=== PATIENT | male | born 1955 | race Caucasian/White ===

== ENCOUNTER → 2017-06-19 16:05 | Outpatient (CLI) | payer SELFPAY ==
[2016-09-03 12:18] VITALS: BP 129/84
--- NOTE | 2017-06-19 16:29 | RAD_ITS ---
STUDY: X-RAY CHEST REASON FOR EXAM: Male, 61 years old. Cough, bronchitis TECHNIQUE: Frontal and lateral views COMPARISON: None. FINDINGS: The lungs are clear and expanded. There is no demonstrated pleural abnormality. Normal size heart. Normal mediastinum and jessy. Normal visualized pulmonary arteries. Normal visualized aortic arch and descending thoracic aorta. Mild degenerative changes of the thoracic spine. Normal visualized ribs, clavicles, and shoulders. There is no demonstrated abnormality of the visualized soft tissue structures of the upper abdomen. RAD/Chest PA and Lateral IMPRESSION: Normal x-ray examination of the chest. Electronically Signed: Raymond Wallace DO at 22:15 EST Tel [phone], Service support ,
[2017-06-19 17:29] LABS: Absolute Lymphocyte Count 0.66 X10^3/ul (0.83-4.51); Absolute Neutrophil Count 1.7 X10^3/uL (2.0-7.7); Basophil# 0.01 X10^3/uL; Basophil% 0.3 % (0-1); Eosinophil# 0.12 X10^3/uL; Eosinophils% 3.7 % (0-5); Hematocrit 43.7 % (40-54); Hemoglobin 15.1 g/dl (13.0-16.5); Lymphocyte # 0.66 X10^3/ul (4.0); Lymphocyte % 20.6 % (19-41); Mean Corp Hgb Conc 34.6 g/gl (32-36); Mean Corpuscular Hgb 32.3 pg (27.0-32.0); Mean Corpuscular Volume 93.6 fL (80-94); Mean Platelet Vol. 10.1 fl (6.2-12.0); Monocyte# 0.68 X10^3/uL; Monocyte% 21.2 % (0-10); Neutrophil # 1.74 X10^3/uL (2.7-7.7); Neutrophil % 54.2 % (47-70); Platelet Count 147 K/mm3 (150-450); RBC Distribution Width SD 44.4 fl (35.1-43.9); Red Blood Count 4.67 M/mm3 (4.6-6.2); White Blood Count 3.2 K/mm3 (4.4-11.0)
[2017-06-19 17:31] LABS: POSITIVE COUNT NO; POSITIVE DIFFERENTIAL NO; POSITIVE MORPHOLOGY NO
== END ==
PROVIDERS: Family Provider Nurse Practitioner Family; PCP Nurse Practitioner Family; Visit Provider Nurse Practitioner Family
DX: R05 Cough (principal); J42 Unspecified chronic bronchitis
CPT/HCPCS: 36415; 71046; 85025

== ENCOUNTER → 2018-12-04 | Outpatient (CLI) | payer SELFPAY ==
[2018-12-04 17:33] LABS: PSA,Total - Annual Screen 0.86 ng/mL (0.00-4.00)
== END | disposition home or self-care (01) ==
PROVIDERS: Family Provider Nurse Practitioner Family; PCP Nurse Practitioner Family; Referring Provider Nurse Practitioner Family; Visit Provider Nurse Practitioner Family
DX: Z12.5 Encounter for screening for malignant neoplasm of prostate (principal)
CPT/HCPCS: 36415; 84153; G0103

== ENCOUNTER 2020-04-05 09:00 | Outpatient (RCR) | payer OTHER, SELFPAY ==
[2019-06-25 14:29] VITALS: BMI 31.6
--- NOTE | 2020-03-22 14:52 | HP.PTEVAL ---
Patient's Visit Information CLARIBEL CEJA is a 64 year old M referred to Physical Therapy by KISHORE VENTURA with a diagnosis of subdural hematoma, R shoulder pain. Date of Evaluation: 03/22/20 Physical Therapist: Hector Meade, PT, ATC - Visit Plan Frequency: 2x /Week Duration: 1 Week Plan: Issue and instruct a HEP for R shoulder AROM, strengthening (rot cuff), scap stab, UBE over next 2 visits. 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 Pt reports he landed on his R side which resulted in multiple Fx'd ribs, fractured scapula, pnuemothorax, and subdural hematoma. Pt was in the hospital for about a week, and has been home for the past 5 days. Pt reports he is still in a lot of pain today. Pt notes he feels his rib pain only when he coughs. Pt is L hand dominant. Pt reports difficulty with getting dressed at this time secondary to rib and shoulder pain. Pt reports his biggest concern is that he wants to RTW without limitatiions . Pt notes he has sleep difficulty secondary to pain, being able to sleep for about 2 hours at a time. No tingling or numbness in R UE. - Pain R ribs and shoulder Pain Intensity (Out of 10): 2 Pain Intensity Range: 9 - Objective Neuro: B UE sensation is WNL to light touch. B bicepital reflex= 2/3. Palpation: Pt has a 2nd degree step off deformity of R AC joint. Pain throughout R shoulder. No other obvious deformity. ROM: L shoulder flex= 150, abd= 155, ER= 55, IR WNL; R shoulder flex= 75, abd= 70, ER= 55. MMT: R Shoulder is grossly 2-/5 and painful. L shoulder is 5/5 throughout - Goals Goal 1:: I with HEP Goal Time Frame: 4-6 Weeks - Rehabilitation Potential Physical Therapy Diagnosis: Pt has R shoulder pain, weakness, and limited ROM secondary to trauma suffered from a fall Rehabilitation Potential: Good - Anticipated Interventions Patient/Client Instruction: Educate patient on: Condition, Plan of Care For the Purpose of:: To improve self management Therapeutic Exercise to Include: Strength training, Endurance training, Flexibilty training, Active ROM, Scapular Strength/Stabilization For the Purpose of:: To decrease pain, To increase ROM, To improve muscle performance and motor function Cryotherapy (ice pack, ice massage): Yes For the Purpose of:: To decrease pain Thank you for the opportunity to evaluate your patient. For Medicare and Medicare HMO plans, please review the plan of care and approve it. It will need to be FAXED BACK to us at [phone] for Medicare purposes. For Medicare only, by signing this I certify the plan of care. Please let me know if there are questions or concerns regarding this plan of care. Physician Signature: Date:
--- NOTE | 2020-04-04 13:53 | HP.OTEVAL_ITS ---
Patient's Visit Information CLARIBEL CEJA is a 64 year old M, referred to Occupational Therapy by KISHORE VENTURA, with a diagnosis of subarachnoid hemorrhage, subdural hematoma. Date of Evaluation: 04/04/20 Occupational Therapist: Shantelle Hunter, OTR/Tim, CHT - Subjective This 64 year old male was seen for OT eval with dx of subarachnoid hemorrhage, dub dural hematoma. 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 pt went by squad and life flight to [facility]. Pt will see Physical therapy for his right shoulder. pt states he is having difficulty with word finding or his walking feels off or balance. pt is left handed. 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 pt states he is having difficult stay focused. pt states he becomes emotional about things around him- states he can not read a novel yet. - Pain right UE 3 Pain Intensity Range: 3, 8 - ROM Shoulder: right limited to 110* left WNL Elbow: Right /left WNL Forearm: Right /left WNL Wrist: Right /left WNL - Strength Passport Application Examiner: right 90# left 85# Lateral Pinch: right 30# left 32# Tripod Pinch: right 28# left 24# Tip-to-Tip Pinch: right 20# left 20# - Sensation Sensation Comments: denies - Quick DASH-Disab of Arm,Shoulder& Hand Quick DASH Score: 58.3325 - Rehabilitation General Assessment: Pt demo with right painful shoulder and limited ROM- this is being treated by Physical therapy- As to not duplicate services pt will not cont. with OT at this time. pt demo with some word finding issues and staying foucused while at work. pt would benefit from speech therapy to eval pts cognitive status. - Visit Plan General Plan: Pt is established with Physical therapy and to not overlap s ervices will defer services to PT- pt would benefit from Speech Therapy for cognitive eval. TEXT: Thank you for the opportunity to evaluate your patient. For Medicare and Medicare HMO plans, please review the plan of care and approve it. It will need to be FAXED BACK to us at [phone] for Medicare purposes. Please let me know if there are questions or concerns regarding this plan of care. Physician Signature: Date:
--- NOTE | 2020-06-20 14:56 | HP.PT.NRP ---
CLARIBEL CEJA was seen in my office for initial evaluation on 03/22/20. The following Plan of Care was established for this patient: Initial Frequency: 2x /Week Initial Duration: 1 Week Patient/Client Instruction: Educate patient on: Condition, Plan of Care For the Purpose of:: To improve self management Therapeutic Exercise to Include: Strength training, Endurance training, Flexibilty training, Active ROM, Scapular Strength/Stabilization For the Purpose of:: To decrease pain, To increase ROM, To improve muscle performance and motor function Cryotherapy (ice pack, ice massage): Yes For the Purpose of:: To decrease pain This patient was last seen in our office . Pertinent comments regarding their Physical therapy will appear below: Pt was treated for 2 PT visits for R shoulder pain through the date of 04/05/20. Pt has not returned through todays date and is discontinued at this time. At this point I will be discontinuing this patient from physical therapy. I would be happy to see this patient again in the future if found appropriate by the physician. Thank you! Hector Meade, PT, ATC
== END 2020-04-05 19:00 | disposition home or self-care (01) ==
LOC: PT 09:00
PROVIDERS: PCP Nurse Practitioner Family
DX: S22.41XD Multiple fractures of ribs, right side, subsequent encounter for fracture with routine healing (principal); S27.0XXD Traumatic pneumothorax, subsequent encounter; I60.9 Nontraumatic subarachnoid hemorrhage, unspecified; W19.XXXD Unspecified fall, subsequent encounter
CPT/HCPCS: 97110; 97161; 97166

== ENCOUNTER 2022-06-30 09:16 | Emergency (ER) | payer OTHER, SELFPAY ==
[2022-06-30 09:17] VITALS: BP 140/73; PULSE 66; RESP 16; TEMP 36.1; O2SAT 96; BMI 32.1
--- NOTE | 2022-06-30 09:36 | RAD_ITS ---
EXAM: XR RIGHT HAND COMPLETE, 3 OR MORE VIEWS CLINICAL INDICATION: Injured right middle finger last night TECHNIQUE: Frontal, lateral and oblique views of the right hand. This report was created using [employer] report generation technology. COMPARISON: None. FINDINGS: BONES/JOINTS: Acute longitudinal fracture with mild comminution of the distal two thirds of the third distal phalanx. Preservation of the joint space. No sclerotic or destructive changes observed. SOFT TISSUES: Unremarkable. No soft tissue swelling or gas. No radiopaque foreign body. RAD/Finger(s) Min 2 Views IMPRESSION: Acute longitudinal fracture with mild comminution in the distal two thirds of the right third distal phalanx. Electronically Signed: Nasim Garcia MD at 9:52 EST ,
--- NOTE | 2022-06-30 09:37 | EDS_ITS ---
HPI History of Present Illness Chief Complaint: Upper Extremity Injury Detail of Chief Complaint: Injury to right middle finger Informant: patient Narrative Narrative: Patient presents with an injury to his right middle finger that occurred last evening approximately 11:30 PM. Patient states that he was putting firewood in his furnace when 2 pieces of wood smashed his finger. Patient is left-hand dominant. Patient thinks his last tetanus shot was less than 5 years ago. Patient states that he has allergy to lidocaine when he had it injected in his armpit years ago it caused him chest pain and that had epinephrine in it. Patient denied lip or tongue swelling with that. Patient has had anesthetic in the past as well as dental injections without any difficulty. [facility] Medical History (Updated 06/30/22 @ 10:[address] Dana Wolfe DO) Hemorrhoid Osteoarthritis Home Medications multivitamin 1 tab PO DAILY 09/02/16 [History Last Taken 09/02/16 12:00] ascorbic acid (vitamin C) 500 mg capsule mg PO 06/25/19 [History Last Taken Unknown] echinacea 500 mg capsule 500 mg PO BID 06/25/19 [History Last Taken Unknown] niacin 100 mg tablet 100 mg PO DAILY 06/25/19 [History Last Taken Unknown] saw palm 160 mg-vit E 100 unit-selen 100 [id number]-tqqi-iohhmp-pygeum tablet (Prostate Health) tab PO 06/25/19 [History Last Taken Unknown] cephalexin 500 mg capsule 500 mg PO Q6 #40 CAPSULES 06/30/22 [Rx Last Taken Unknown] hydrocodone-acetaminophen 5-325mg 5mg-325mg 1 tab PO Q4H PRN PRN Pain 2 days #10 TABLETS 06/30/22 [Rx Last Taken Unknown] Allergy/AdvReac Type Severity Reaction Status Date / Time peanut Allergy Severe sob, Verified 06/30/22 09:19 rectal bleeding epinephrine AdvReac Severe chest pain Verified 06/30/22 09:19 [From Xylocaine with Epinephrine] lidocaine AdvReac Severe chest pain Verified 06/30/22 09:19 [From Xylocaine with Epinephrine] Family History Father Diabetes Hypertension Cancer lung Sister Diabetes Mother Heart disease COPD (chronic obstructive pulmonary disease) Surgical History History of appendectomy (~2018) History of colonoscopy (~2015) Social History (Updated 07/01/19 @ 08:[address] Mike Pruett MD) Smoking Status: Never smoker ROS ROS ED Review of Systems ROS Unobtainable: other Constitutional Constitutional ED: Reports lethargy; Denies chills, fever(s), sweats or weight loss Eyes Eyes: Denies blurry vision, change in vision or diplopia ENT ENT ED: Denies rhinorrhea or sore throat Cardiovascular Cardiovascular: Denies chest pain, orthopnea or racing heartbeat Respiratory/Chest Respiratory/Chest: Denies cough, dyspnea, dyspnea on exertion, orthopnea or sputum Gastrointestinal Gastrointestinal: Denies abdominal pain, diarrhea, nausea or vomiting Genitourinary Genitourinary ED: Denies dysuria, hematuria or urinary frequency Musculoskeletal Musculoskeletal: Reports other Details: Injury to right middle finger ; Denies arthralgias, back pain, myalgias or neck pain Integumentary Denies abscess, Abrasions or rash Neurologic Neurologic: Denies headache(s) or weakness Psychiatric Psychiatric: Denies anxiety, depression or suicidal thoughts Endocrine Endocrinology: Denies polydipsia, polyphagia or polyuria Hematologic/Lymphatic Hematologic/Lymphatic: Denies easy bleeding, easy bruising or lymphadenopathy Allergic/Immunologic Allergic/Immunologic ED: Denies mouth swelling, tongue swelling or urticaria EXAM Physical Exam Const Vital Signs: 06/30/22 09:17 Temperature 97 F L Temperature Source Temporal Pulse Rate 66 Respiratory Rate 16 Blood Pressure 140/73 H Blood Pressure Mean 95 Pulse Ox 96 Oxygen Delivery Method Room Air Positive well nourished and well developed General Appearance ED: well developed and NAD HEENT Reports TM's clear and moist mucous membranes normocephalic and atraumatic; Negative for trauma or tenderness Tympanic Membrane ED: Yes TM's clear Eyes PERRL and EOMs intact bilaterally General Eye ED: Negative for pale conjunctiva or scleral icterus Neck no lymphadenopathy, supple and no JVD General: Negative for tenderness Chest Wall inspection of chest normal and palpation of chest normal Chest: Negative for tenderness Resp normal respiratory effort and clear to auscultation bilaterally Effort and Inspection: Negative for respiratory distress or pain with movement Auscultation: Negative for rhonchi, wheezes or diminished lung sounds Cardio regular rate, regular rhythm, S1 normal heart sound, S2 normal heart sound and no murmurs Peripheral Pulses: pulses 2+ throughout GI normal to inspection, nondistended, normoactive bowel sounds, soft to palpation, non-tender, non-distended and no masses Back/Spine no CVA tenderness and no thoracic nor lumbar tenderness Extremity Extremity Narrative: Right hand-patient has arthritic changes to the DIP and PIP joints of the fingers. Evaluation of the right middle finger does reveal some tenderness palpation over the distal phalanx. Over the volar aspect of the distal phalanx there is a flap-like laceration measuring approximately 2.5 cm. Patient has good range of motion flexion extension of all digits and the involved digit at the DIP and PIP joint. General Extremety ED: Negative for edema General Extremity: Negative for edema Neuro oriented x3, CN's II-XII intact bilaterally, no sensory deficits noted and gait normal Sensorium / Orientation: awake, alert, oriented to person, oriented to place and oriented to time Motor Exam: strength 5/5 throughout and strength abnormal Psych mental status grossly normal Skin no rashes or lesions noted and no wounds MDM MDM MDM Narrative Medical decision making narrative: Patient had his suture repair given that he is within the 12-hour window. I performed a digital block. Patient tolerated procedure well. Wound was irrigated with copious saline. Wound cleansed with Shur-Clens. Using 5-0 nylon total of 6 interrupted sutures placed with good wound edge approximation. Patient Toller procedure well. Patient will be started on Keflex. Patient will be given a prescription for Braggadocio for pain. Patient will be referred to orthopedics for follow-up. Patient have sutures removed in 10 days. Patient advised to return if increasing pain, redness, swelling, purulent drainage, or condition should worsen anyway. Radiography Diagnostic Testing: Three-view x-rays of the right middle finger obtained interpreted by myself as fracture of the distal phalanx that is minimally displaced. Radiology was in agreement. Procedures Lacerations Right middle finger laceration: Length: 0.98 in Depth: Sub Q Shape: Flap Prep: Sterile Conditions Laceration repair: Irrigated, Lidocaine, Nerve block, Skin sutures and Wound explored Irrigated (ml): 100 Number of Sutures/[place]: 6 Suture Information: Ethilon, Simple and 5-0 Discharge Plan Triage Chief Complaint: Upper Extremity Injury ED Provider: Dana Wolfe Dx/Rx/DC Orders Clinical Impression: Open fracture of phalanx of right middle finger, Finger laceration Instructions: ED Fracture, Finger, Open Prescriptions: New hydrocodone-acetaminophen [hydrocodone-acetaminophen] 5-325 mg tablet 1 tab PO Q4H PRN PRN (Reason: Pain) 2 Days Qty: 10 0RF cephalexin [cephalexin] 500 mg capsule 500 mg PO Q6 Qty: 40 0RF No Action niacin 100 mg tablet 100 mg PO DAILY echinacea 500 mg capsule 500 mg PO BID Rx Instructions: administer with meals ascorbic acid (vitamin C) 500 mg capsule PO Prostate Health 160-100-100 mg-unit-mcg tablet PO multivitamin 1 EACH tablet 1 tab PO DAILY Primary Care Provider: West Crockett NP Referrals: Ludwin Freeman MD [Med Staff - Active Staff] - 10 Day for suture removal West Crockett NP, SLURRY CONTROL OPERATOR HELPER-C [Primary Care Provider] - Disposition Disposition: Home, Self Care Discharge Date/Time: 06/30/22 11:13
[2022-06-30] MEDS: Lidocaine 1% (20 ml mdv) 20 ML Vial 8 ML INFILT (09:56)
[2022-06-30] MEDS: Cephalexin 250 MG Capsule 500 MG PO (11:10)
== END 2022-06-30 11:13 | disposition home or self-care (01) ==
PROVIDERS: Emergency Provider Emergency Medicine; PCP Nurse Practitioner Family; Visit Provider Emergency Medicine
DX: S62.602B Fracture of unspecified phalanx of right middle finger, initial encounter for open fracture (principal); S61.212A Laceration without foreign body of right middle finger without damage to nail, initial encounter; X58.XXXA Exposure to other specified factors, initial encounter; Z79.899 Other long term (current) drug therapy; M19.90 Unspecified osteoarthritis, unspecified site; R53.83 Other fatigue
CPT/HCPCS: 12001; 73140; 99284

== ENCOUNTER → 2023-03-25 | Outpatient (CLI) | payer MEDICARE, SELFPAY ==
--- NOTE | 2023-03-25 09:57 | ECHOCS_ITS ---
Reason For Study: PRIMARY CENTRAL SLEEP APNEA Procedure This was a 2D Doppler, Color Flow transthoracic echocardiogram. The study was technically difficult. Contrast injection was performed. Exam performed in department. Left Ventricle Normal LV size. The estimated ejection fraction is 65 %. No evidence for diastolic dysfunction. No regional wall motion abnormalities noted. Right Ventricle Normal RV size. Normal systolic function. Atria The left and right atria are normal. No doppler evidence for ASD. Mitral Valve There is no mitral valve stenosis. No mitral valve insufficiency. Tricuspid Valve There is no tricuspid stenosis. Trivial tricuspid valve insufficiency. Pulmonary artery systolic pressure is 30 mmHg. Aortic Valve Trisinus/trileaflet aortic valve. There is no aortic stenosis. No aortic valve insufficiency. Pulmonic Valve There is no pulmonic valvular stenosis. No pulmonic valve insufficiency. Great Vessels Normal aortic root. Pericardium/Pleural No pericardial effusion. Medication 22 gauge I.V. with prn adaptor inserted into right arm. Diluted definity 3ml given slow IV push to enhance endocardial definition. MMode/2D Measurements & Calculations LVIDd: 4.8 cm IVSd: 1.1 cm Ao root diam: 3.0 cm LVIDs: 3.2 cm LVPWd: 1.2 cm FS: 32.9 % LAV(MOD-bp): 41.5 ml LVAd ap4: 32.8 cm2 SV(MOD-sp4): 55.9 ml LAV(MOD-bp) Indexed: 18.6 ml/m2 LVLd ap4: 8.7 cm LAV(MOD-sp2): 30.2 ml EDV(MOD-sp4): 102.6 ml LAV(MOD-sp4): 50.1 ml EDV(sp4-el): 105.7 ml LVAs ap4: 19.6 cm2 LVLs ap4: 6.9 cm ESV(MOD-sp4): 46.7 ml ESV(sp4-el): 46.9 ml EF(MOD-sp4): 54.5 % EF(sp4-el): 55.6 % SV(sp4-el): 58.8 ml LA A4 area: 18.8 cm2 LA dimension(2D): 4.0 cm RA A4 area: 22.2 cm2 TAPSE: 2.1 cm Time Measurements MV dec time: 0.17 sec Doppler Measurements & Calculations MV E max kai: 69.7 cm/sec Lat Peak E' Kai: 11.6 cm/sec Med Peak E' Kai: 9.1 cm/sec MV A max kai: 61.0 cm/sec E/E' lat: 6.0 E/E' med: 7.7 MV E/A: 1.1 MV V2 max: 101.9 cm/sec MV dec slope: 457.4 cm/sec2 Ao V2 max: 125.8 cm/sec MV max P.2 mmHg Ao max P.3 mmHg MV V2 mean: 54.8 cm/sec Ao V2 mean: 82.9 cm/sec MV mean P.5 mmHg Ao mean P.2 mmHg MV V2 VTI: 28.9 cm Ao V2 VTI: 27.5 cm AV (velocity ratio): 0.73 LV V1 max: 91.3 cm/sec PA V2 max: 178.1 cm/sec LV V1 max P.3 mmHg PA V2 mean: 115.4 cm/sec LV V1 mean P.9 mmHg LV V1 mean: 64.8 cm/sec LV V1 VTI: 20.1 cm ECHO/Echo Complete W/ Contrast Interpretation Summary The estimated ejection fraction is 65 %. No evidence for diastolic dysfunction. Ordering Physician: Rl Romero V Referring Physician: Rl Romero V Performed By: Reyna Fountain RCS
== END | disposition home or self-care (01) ==
LOC: CVS 09:56
PROVIDERS: PCP Nurse Practitioner Family; Referring Provider Internal Medicine Pulmonary Disease; Visit Provider Internal Medicine Pulmonary Disease
DX: G47.31 Primary central sleep apnea (principal)
CPT/HCPCS: 93306; Q9957; A4216; C8929

== ENCOUNTER → 2024-05-25 | Outpatient (CLI) | payer MEDICARE, SELFPAY | END | disposition home or self-care (01) | LOC: LABSPEC 15:47 | PROVIDERS: PCP Nurse Practitioner Family; Visit Provider Surgery | DX: Z01.818 Encounter for other preprocedural examination (principal); K42.9 Umbilical hernia without obstruction or gangrene | CPT/HCPCS: 87077; 87081 ==

== ENCOUNTER 2024-06-10 06:14 | Day surgery (SDC) | payer MEDICARE, SELFPAY ==
[2024-06-10] VITALS (10 sets, daily range): BP systolic 87–137; BP diastolic 57–103; PULSE 48–70; RESP 16–18; TEMP 36.2–36.5; O2SAT 87–99; BMI 31.9
--- NOTE | 2024-06-10 07:02 | PCM.PRE.AN2 ---
ASA Classification* ASA Classification ASA Classification: 3 Assessment & Plan Anesthesia* Anesthesia Assessment Anesthesia Assessment: Discussed sedation and/or anesthesia options, risks, benefits, and alternatives with patient/parents/legal guardian/POA. Questions invited. The patient/parents/legal guardian/POA seems to understand and agrees to proceed with anesthesia plan. Reviewed the physical assessment, medical history, allergy history and patient home medications list prior to surgery/procedure/anesthetic and documented any changes. Performed airway and anesthesia risk assessments. Anesthesia Type Anesthesia Type: MAC History Source History Obtained from:: Patient and Chart Anesthesia Focused Assessment* Temperature: 97.5 F Pulse Rate: 70 Blood Pressure: 135/82 Respiratory Rate: 16 Pulse Ox: 99 Airway Assessment Mouth opens: >3 cm Mallampati Score: II Teeth Condition: Intact Neck Range of motion (ROM): Full ROM Focused Labs Anesthesia Preop lab: CBC WBC 3.2 K/mm3 (4.4-11.0) L 06/19/17 16:15 RBC 4.67 M/mm3 (4.6-6.2) 06/19/17 16:15 Hgb 15.1 g/dl (13.0-16.5) 06/19/17 16:15 Hct 43.7 % (40-54) 06/19/17 16:15 Plt Count 147 K/mm3 (150-450) L 06/19/17 16:15 CHEMISTRY Potassium 4.0 mmol/L (3.5-5.1) 09/02/16 20:02 Sodium 138 mmol/L (136-145) 09/02/16 20:02 BUN 13 mg/dL (7-18) 09/02/16 20:02 Creatinine 0.90 mg/dL (0.70-1.30) 09/02/16 20:02 Glucose 95 mg/dL (70-110) 09/02/16 20:02 COAG Pre-Assessment Diagnosis/Proposed Procedure Planned Operative Procedure(s): EGD,COLONOSCOPY Anesthesia History 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 When Was Last Pacemaker Check QUESTION #4 FULL TEXT: You/Your Family Experience fever (hyperthermia) with Anesthesia Last Oral Intake Last Oral intake: Last Oral Intake NPO since 23:00 06/10/24 06:33 Meds taken in AM with sips of No 06/10/24 06:33 water? 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 Female No 06/07/24 15:20 HX of Motion Sickness No 06/07/24 15:20 HX of N/V After Surgery No 06/07/24 15:20 Non-Smoker Yes 06/07/24 15:20 Duration of Surgery greater No 06/07/24 15:20 than 60 minutes Number of Risk Factors 1 06/07/24 15:20 PONV Score Low Risk 06/07/24 15:20 Height & Weight Height & Weight: Anesthesia: Height & Weight Height 5 ft 11 in 06/10/24 06:33 Weight: 104 kg 06/10/24 06:33 Body Mass Index (BMI) 31.9 06/10/24 06:33 Respiratory Assessment Respiratory Assessment - auto service station attendant: Respiratory Tract Infection Hx - auto service station attendant Hx Respiratory Tract Infection No 06/07/24 15:20 STOP Sleep Apnea STOP Sleep Apnea - auto service station attendant: STOP Sleep Apnea - auto service station attendant Hx Hypertension No 06/07/24 15:20 Hx Sleep Apnea Yes 06/07/24 15:20 CPAP No 06/07/24 15:20 BIPAP Yes 06/07/24 15:20 Do you snore loudly (louder than talking or can be heard Do you often feel tired/ fatigued/ sleepy during daytime? Has anyone observed you stop breathing during sleep? STOP Results Positive 06/07/24 15:20 QUESTION #5 FULL TEXT : Do you snore loudly (louder than talking or can be heard through closed doors)? 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 Specify any problems Hx of Preganancy in last 3 N/A 06/07/24 15:20 Months Nurse Filling Out Transfusion MGRIFFITH 06/07/24 15:20 & Questions: Date: 06/07/24 06/07/24 15:20 Time: :06/07/24 15:20 Patient unable to answer at this time (ie. 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: /Reproductive Hx- auto service station attendant Hx Now Gestational Age (in weeks): EDC: Hx Hx Para Hx Section SAB PFSH Medical History Wears glasses Injury of head and neck BiPAP (biphasic positive airway pressure) dependence Non-smoker Umbilical hernia Sleep apnea Burping Acid reflux Abdominal pain Arthritis Osteoarthritis Hemorrhoid Appendicitis Home Medications ?Medication ?Instructions ?Recorded ?Last Taken ?Type multivitamin 1 tab PO DAILY 09/02/16 06/06/24 History ascorbic acid (vitamin C) 500 mg 500 mg PO DAILY 06/25/19 06/06/24 History capsule niacin 100 mg tablet 100 mg PO DAILY 06/25/19 06/06/24 History cholecalciferol (vitamin D3) 25 25 mcg PO QDAY 05/25/24 06/06/24 History mcg (1,000 unit) capsule magnesium oxide 400 mg PO QDAY 05/25/24 06/06/24 History prosta genix 1,000 mg PO DAILY 05/25/24 06/06/24 History zinc acetate 50 mg (zinc) capsule 50 mg PO QDAY 05/25/24 06/06/24 History chlorhexidine gluconate 4 % 1 applic topical ONCE #473 mL 05/27/24 Unknown Rx topical liquid (Hibiclens) mupirocin 2 % topical ointment 1 applic topical BID #15 grams 05/27/24 Unknown Rx Allergy/AdvReac Type Severity Reaction Status Date / Time peanut Allergy Severe sob, Verified 06/10/24 06:30 rectal bleeding lidocaine (From Xylocaine AdvReac Severe chest pain Verified 06/10/24 06:30 with Epinephrine) Family History Father Diabetes Hypertension Cancer lung Sister Diabetes Mother Heart disease COPD (chronic obstructive pulmonary disease) Surgical History History of appendectomy History of esophagogastroduodenoscopy (EGD) History of colonoscopy (~2014) Social History Smoking Status: Never smoker alcohol intake: current alcohol intake frequency: holidays/special occasions only substance use type: does not use Prior Cardiac Testing/Procedures Prior Cardiac Testing/Procedures: Echocardiogram (EF 65 %) Addt'l Information Additional Findings: >4 mets at home Review of Systems (Anesthesia) ROS Narrative System reviewed and no additional complaints, except as documented.
--- NOTE | 2024-06-10 07:30 | IMM_PTH ---
PATIENT: CLARIBEL CEJA LOC: EN U#:[id number] AGE/SX: 68/M ROOM: RE06/10/[address]: Dr. 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 Localization is made via biotin free immunoperoxidase method. Appropriate controls are performed and reacted as expected. Results on target cell population are indicated in the following table: RESULTS: ANTIBODY / CLONE RESULT Block AH Pylori (polyclonal) negative These tests were developed and their performance characteristics determined by [facility]. They may not have been cleared or approved by the U.S. Food and Drug Administration. The FDA has determined that such clearance or approval is not necessary. The above immunohistochemical/dualISH markers are ordered and reviewed by the Pathologist. INTERPRETATION: A. Antrum, biopsy: Negative for Helicobacter pylori organisms. 06/11/2024
--- NOTE | 2024-06-10 07:30 | EGD_PTH ---
PATIENT: CLARIBEL CEJA LOC: EN U#:[id number] AGE/SX: 68/M ROOM: RE06/10/[address]: Dr. 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 Antrum, biopsy: Mild gastritis. See microscopic description and comment. B. Gastroesophageal junction, biopsy: Fragments of gastroesophageal mucosa with chronic inflammation. Intestinal metaplasia (goblet cell metaplasia) not identified. See comment. C. Distal esophagus, biopsy: Fragments of benign squamous epithelium. A minute fragment of gastric mucosa, negative for intestinal metaplasia. See comment. D. Sigmoid polyp, biopsy: Fragments of colonic mucosa, no pathologic diagnosis. E. Sigmoid polyp #2, biopsy: Hyperplastic polyp. . 06/11/2024 COMMENT A. The results of immunohistochemistry for Helicobacter pylori will be reported separately ([id number]). B. Alcian blue/PAS stain with matched control is used in the evaluation of the specimen. The specimen predominantly consists of squamous mucosa. C. Alcian blue/PAS stain with matched control is used in the evaluation of the specimen, however no gastric mucosa is noted in the special stained slide. MICROSCOPIC DESCRIPTION Slides are reviewed. A. The specimen shows fragments of gastric mucosa with chronic inflammatory cell infiltrates in the lamina propria consisting of lymphocytes and plasma cells, consistent with mild chronic gastritis. GROSS DESCRIPTION A. Received in fixative is one container labeled with the patient's name and designated Antrum biopsy. The specimen consists of two irregular fragments of light mireles soft tissue that in aggregate measure 1 x 0.3 x 0.2 cm. The specimen is totally submitted in one cassette. B. Received in fixative is one container labeled with the patient's name and designated GE junction biopsy. The specimen consists of two irregular fragments of light mireles soft tissue that in aggregate measure 0.6 x 0.3 x 0.2 cm. The specimen is totally submitted in one cassette. C. Received in fixative is one container labeled with the patient's name and designated Distal esophagus biopsy. The specimen consists of three irregular fragments of light mireles soft tissue that in aggregate measure 0.4 x 0.2 x 0.1 cm. The specimen is totally submitted in one cassette. D. Received in fixative is one container labeled with the patient's name and designated Sigmoid polyp biopsy. The specimen consists of two irregular fragments of light mireles soft tissue that in aggregate measure 0.5 x 0.3 x 0.2 cm. The specimen is totally submitted in one cassette. E. Received in fixative is one container labeled with the patient's name and designated Sigmoid polyp biopsy #2. The specimen consists of one irregular fragment of light mireles soft tissue that measures 0.4 x 0.4 x 0.2 cm. The specimen is totally submitted in one cassette. PANKAJ. 06/10/2024 TC:3 CPT:13532g4,14116h5
--- NOTE | 2024-06-10 07:38 | HP.PCM_ITS ---
History and Physical Date of Admission: 06/10/24 Date of Service: 05/25/24 MR#: [id number] Acct: [id number] Name: CLARIBEL SANTOS Rep #: [id number] : 1955 Provider: Dr. Abhinav Stubbs MD Age/Sex: 68/M Location: [facility] Status: Signed Intake Vital Signs 06/30/2308:17 05/06/2415:20 05/25/2512:35 Height 5 ft 11 in 5 ft 11 in 5 ft 11 in Weight: 237 lb BMI 33.0 BP 148/82 H Blood Pressure Location Rt brachial Position Sitting Respiration 18 Pulse 63 Pulse Source Monitor Temp 97.5 F L Temp Source Temporal Pulse Oximetry (%) 96 Oxygen Delivery Method room air Intake Visit Reasons: UMBILICAL HERNIA Chief Complaint: umbilical hernia/ LLQ pain Accompanied by: Is patient in pain?: No Allergies peanut Allergy (Severe, Verified 05/25/24 13:17) sob, rectal bleedingepinephrine (From Xylocaine with Epinephrine) Adverse Reaction (Severe, Verified 05/25/24 13:17) chest pain lidocaine (From Xylocaine with Epinephrine) Adverse Reaction (Severe, Verified 05/25/24 13:17) chest pain Medications ?Medication ?Instructions ?Recorded ?Confirmed ?Type multivitamin 1 tab PO DAILY 09/02/16 06/25/19 History ascorbic acid (vitamin C) 500 mg mg PO 06/25/19 05/25/24 History capsule niacin 100 mg tablet 100 mg PO DAILY 06/25/19 06/25/19 History cholecalciferol (vitamin D3) 25 25 mcg PO QDAY 05/25/24 05/25/24 History mcg (1,000 unit) capsule magnesium oxide 400 mg PO QDAY 05/25/24 05/25/24 History prosta genix 1,000 mg PO DAILY 05/25/24 History zinc acetate 50 mg (zinc) capsule 50 mg PO QDAY 05/25/24 05/25/24 History Have you fallen in the past year?: No [facility] Medical History (Updated 05/25/24 @ 17:[address] Abhinav Stubbs MD) Umbilical hernia Sleep apnea Burping Acid reflux Abdominal pain Arthritis Appendicitis Osteoarthritis Hemorrhoid Surgical History History of colonoscopy (~2014) Family History Father Diabetes Hypertension Cancer lungSister DiabetesMother Heart disease COPD (chronic obstructive pulmonary disease) Social History (Updated 05/25/24 @ 13:17 by Gretel Mcgee LPN) Smoking Status: Never smoker alcohol intake: current alcohol intake frequency: holidays/special occasions only substance use type: does not use HPI HPI HPI: Patient is a 68-year-old male who presents for surgical consultation related to a growing umbilical hernia. This finding was first noticed by over 8 years ago and he met twice with Dr. Pruett regarding a possible repair but opted to not go all the way to [place] for the repair. He presents today's visit with his who assists with the history. Patient is able to recall how this occurred and shares that it began when lifting a heavy pallet at work. He states that he then underwent an appendectomy with Dr. Kruse in [address] Kruse performed a primary repair at the time of the appendectomy. 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 He shares that he had considered trying to go to the [facility] in [place] for a mesh free repair because he had always heard mesh was a problem but when they heard that had previously been repaired by Dr. Kruse he was no longer considered a candidate. Mr. Santos shares that in addition to growth he experiences a strain of the tissue but denies jason pain. He denies any associated skin changes. When asked about any changes to his bowel movements he generally says no but does share that he finds he regularly experiences constipation on the weekends where he simply fails to have a bowel movement. He reports his last bowel movement was at least [address] Vale. He recalls the findings were unremarkable. Mr. Santos adds that he has been trying to lose weight in anticipation of the surgery and estimates that he is down about 10 pounds from his prior weight. Mr. Santos elaborates that one of the reasons he did not proceed with surgery in 2020 is because he had a workplace accident where he fell from scaffolding resulting in rib fractures, a intracranial bleed, and a number of orthopedic injuries. He states that since that accident he experiences some right shoulder droop and hip pain but no lasting neurologic deficits. He does add that since the accident he seems to have terrible gas of his stomach and reports belching frequently but trying to stifle this belching. Patient has no personal history of smoking. Has now personal history of recurrent cutaneous infections including staph. Pertinent surgical history includes: Laparoscopic appendectomy Given Mr. Santos's complaints of new constipation and duration since his last screening colonoscopy we discussed renewing this exam. They describe their bowel habits as generally occurring 1 time per day and normal in consistency. They generally spend roughly just minutes on the toilet but sometimes bowel movements do require significant straining. They also report that they noticed bleeding every once in a while (this is detailed as a frequency of less than 1 time per month). Patient has no family history of colon cancer, inflammatory bowel disease, or diverticulitis. The patient is not prescribed anticoagulants/blood thinners. Patient does have a significant history of GERD and heartburn. He shares that is primarily heartburn rather than reflux and suggest that his heartburn occurs mostly in the evenings. His reflux occurs almost exclusively in response to foods he eats and gives example of sweet red constantin triggering heartburn. He denies any personal history of ulcers but shares that his father did suffer from significant ulcers. ROS General General: No weight change, appetite, fatigue, colon cancer, breast cancer or weakness HEENT HEENT: No difficulty swallowing, eye injury, eye surgery, swollen glands or hoarseness Endo Endocrine: No thyroid disease, diabetes mellitus, thyroid cancer, Hair loss, heat intolerance or cold intolerance Skin Skin: No rash or changing moles Musc Musculoskeletal: Yes back problems, arthritis and rheumatoid arthritis; No gout or joint pain Cardio Cardiovascular: No murmur, pacemaker, heart disease, atrial fibrillation, high blood pressure, heart attack, heart stent, palpitations, shortness of breat with exertion or chest pain Psych Psychiatric: No depression, anxiety or hearing voices Resp Respiratory: No shortness of breath, Yes sleep apnea, No cough, No COPD, No asthma, No emphysema and No wheezing Gastro Gastrointestinal: Yes abdominal pain, No nausea or vomiting, No diarrhea, No constipation, No blood in stool, Yes acid reflux, Yes hemorrhoids, No ulcers, No gallbladder problem and No black,tarry stools Francis Hematologic: No blood thinners, No blood disorders, No bleeding, No anemia and No blood clots Neuro Neurologic: No numbness, No tingling and No weakness Exam Const General: cooperative Orientation: alert, awake and oriented x3 Resp Effort & Inspection: normal respiratory effort GI Other: Hirsute, obvious hernia of the umbilicus which is not easily reduced and appears to be at least partially chronically incarcerated with fat. There is tenderness to palpation. Hernia defect is estimated approximately 3 to 4 cm. Otherwise abdomen is nondistended, soft, nontender to palpation. Assessment and Plan Assessment and Plan (1) Umbilical hernia: Status: Chronic Comment: Patient with chronic umbilical hernia that was previously repaired primarily in 2017 as part of an appendectomy procedure but recurred shortly thereafter during exertional activity. Hernia is minimally symptomatic but has demonstrated growth. Patient was previously evaluated for repair but initially had a workplace accident that precluded him from going through with the repair and then opted to not travel to the outside hospital. Hernia appears largely stable in size from CT imaging obtained March 2023, but admittedly the hernia is at least partially chronically incarcerated and I was not able to clearly find the fascial edges on exam. Given patient's growth and strong interest in having this repaired I find it reasonable request to proceed?especially as he reports that he has been trying to make healthier lifestyle changes to the name of minimizing his risk for recurrence. After describing the procedure in detail I discussed with him and his potentially proceeding for colonoscopy and EGD prior to proceeding to the OR for this repair given his reports of new constipation and unsettling belching. Ultimately they would like to proceed with this sequence rather than with an operation first. Plan: ? Screening for MRSA via nares swab ? Plan for robot-assisted laparoscopic umbilical hernia repair with mesh. Discussed transabdominal preperitoneal and IPOM approaches but caution that IPOM may be the only method possible given patient's history of previous primary repair. (2) Burping: Status: Acute Plan: Plan for EGD with biopsy and rule out H. pylori (3) Acid reflux: Status: Acute Comment: Patient describes both acid reflux and heartburn but heartburn as primary complaint. Plan: EGD (4) Heartburn symptom: Status: Acute Comment: Patient describes both heartburn and reflux but primary complaint is heartburn. No history of prior EGD evaluation but father did have history of significant ulcers. Plan: EGD (5) Bright red blood per rectum: Status: Acute Comment: Patient describes new constipation with straining and hematochezia. He has out of date on his screening colonoscopies. There does appear to be new diverticulosis on patient's CT imaging from March 2023. Given the symptoms and their potential impact on his recovery through a umbilical hernia repair I offered that we could proceed with updating his colonoscopy prior to proceeding to the OR on his hernia repair and patient and his were receptive. Plan: Diagnostic colonoscopy for new constipation and hematochezia on first mutually agreeable date under local MAC. Pre-procedure prep discussed and paper instructions provided. Patient is also made aware that he will need to have a pizza driver with him the day of the procedure. (6) Constipation: Status: Acute Comment: Describes constipation on a weekly basis with associated hematochezia. Plan: Update colonoscopy with diagnostic exam Orders: Orders MRSA/SAID SCREEN (PRE SURG) Today K42.9 - Umbilical hernia without obstruction or gangrene, Z01.818 - Encounter for other preprocedural examination I have examined the patient and the H&P has been reviewed. There are no clinical changes since date of exam. He confirms he completed prep for today's procedure and his output is now largely clear. Plan to proceed to the endoscopy suite for both upper and lower endoscopy given indications above.
--- NOTE | 2024-06-10 08:57 | OP.EGD_ITS ---
Patient Name: Christoph Santos Procedure Date: 06/10/2024 7:38 AM Date of : 1955 Age: 68 Procedure: Upper GI endoscopy Indications: Heartburn, Abdominal bloating Providers: Abhinav Stubbs MD Referring MD: Abhinav Stubbs MD Medicines: See the Anesthesia note for documentation of the administered medications Patient Profile: Refer to note in patient chart for documentation of history and physical. Complications: No immediate complications. Estimated blood loss: Minimal. Procedure: Pre-Anesthesia Assessment: - The heart rate, respiratory rate, oxygen saturations, blood pressure, adequacy of pulmonary ventilation, and response to care were monitored throughout the procedure. After obtaining informed consent, the endoscope was passed under direct vision. Throughout the procedure, the patient's blood pressure, pulse, and oxygen saturations were monitored continuously. The Endoscope was introduced through the mouth, and advanced to the second part of duodenum. The upper GI endoscopy was accomplished without difficulty. The patient tolerated the procedure well. Scope In: 7:50:21 AM Scope Out: 8:02:26 AM Total Procedure Duration Time 0 hours 12 minutes 5 seconds Findings: No gross lesions were noted in the duodenal bulb, in the first portion of the duodenum and in the second portion of the duodenum. No biopsies or other specimens were collected for this exam. Localized mildly erythematous mucosa without bleeding was found in the gastric antrum. Biopsies were taken with a cold forceps for Helicobacter pylori testing. Estimated blood loss was minimal. No gross lesions were noted in the entire examined stomach. No biopsies or other specimens were collected for this exam. The Z-line was irregular and was found 40 cm from the incisors. Biopsies were taken with a cold forceps for histology. Estimated blood loss was minimal. A medium-sized hiatal hernia was present. No biopsies or other specimens were collected for this exam. Multiple 5 to 10 mm plaques were found in the lower third of the esophagus, 38 cm from the incisors. Estimated blood loss was minimal. Biopsies were taken with a cold forceps for histology. The distal esophagus was mildly tortuous. Impression: - No gross lesions in the duodenal bulb, in the first portion of the duodenum and in the second portion of the duodenum. No specimens collected. - Erythematous mucosa in the antrum. Biopsied. - No gross lesions in the entire stomach. No specimens collected. - Z-line irregular, 40 cm from the incisors. Biopsied. - Medium-sized hiatal hernia. No specimens collected. - Multiple plaques in the lower third of the esophagus. Biopsied. - Tortuous esophagus. Recommendation: - Resume previous diet today. - No aspirin, ibuprofen, naproxen, or other non-steroidal anti-inflammatory drugs for 2 days after biopsy. - Await pathology results. - Telephone my office for pathology results in 1 week. Procedure Code(s): --- Professional --- 60328, Esophagogastroduodenoscopy, flexible, transoral; with biopsy, single or multiple Diagnosis Code(s): --- Professional --- K31.89, Other diseases of stomach and duodenum K22.89, Other specified disease of esophagus K44.9, Diaphragmatic hernia without obstruction or gangrene Q39.9, Congenital malformation of esophagus, unspecified R12, Heartburn R14.0, Abdominal distension (gaseous) CPT copyright 2021 [employer]. All rights reserved. The codes documented in this report are preliminary and upon medical insurance coder review may be revised to meet current compliance requirements. Abhinav Stubbs MD 06/10/2024 8:57:21 AM This report has been signed electronically. Number of Addenda: 0 Note Initiated On: 06/10/2024 7:38 AM
--- NOTE | 2024-06-10 08:57 | OP.CCLET_ITS ---
06/10/2024 [place] [facility] : Upper GI endoscopy procedure for Christoph Rivasnorm [place] This procedure was performed on May. My impressions and recommendations are as follows: Impressions : - No gross lesions in the duodenal bulb, in the first portion of the duodenum and in the second portion of the duodenum. No specimens collected. - Erythematous mucosa in the antrum. Biopsied. - No gross lesions in the entire stomach. No specimens collected. - Z-line irregular, 40 cm from the incisors. Biopsied. - Medium-sized hiatal hernia. No specimens collected. - Multiple plaques in the lower third of the esophagus. Biopsied. - Tortuous esophagus. Recommendations : - Resume previous diet today. - No aspirin, ibuprofen, naproxen, or other non-steroidal anti-inflammatory drugs for 2 days after biopsy. - Await pathology results. - Telephone my office for pathology results in 1 week. My findings are described in the full procedure note, which is enclosed. If I can be of further assistance, please feel free to contact me at Doctor phone number(s): , Work: . Sincerely, Ahbinav Stubbs MD 06/10/2024 8:57:21 AM This report has been signed electronically.
--- NOTE | 2024-06-10 09:01 | PCM.POST.ANE ---
Anesthesia: Postop Eval I Current Vital Signs Temperature: 97.2 F Pulse Rate: 57 Blood Pressure: 137/103 Respiratory Rate: 16 Pulse Ox: 91 Oxygen Delivery Method: Room Air Assessment Airway patent: Yes Spontaneous unlabored respirations: Yes Mental status: Asleep nausea: No Vomiting: No Anesthesia Complication: No Fluid Hydration Crystalloid volume administer (ml): 90 Total IV fluid infused: 90 Progress Note Anesthesia document: Postop Eval 1 completed: Yes
--- NOTE | 2024-06-10 09:04 | OP.CCLET_ITS ---
06/10/2024 [place] [facility] : Colonoscopy procedure for Christoph Rivasr [place] This procedure was performed on May. My impressions and recommendations are as follows: Impressions : - Preparation of the colon was fair. - Hemorrhoids found on perianal exam. - Two 5 to 10 mm, non-bleeding polyps in the sigmoid colon. Biopsied. - Diverticulosis in the sigmoid colon. No specimens collected. - Internal hemorrhoids. No specimens collected. Recommendations : - Discharge patient to home (via wheelchair). - High fiber diet today. - No aspirin, ibuprofen, naproxen, or other non-steroidal anti-inflammatory drugs for 2 days after biopsy. - Await pathology results. - Repeat colonoscopy date to be determined after pending pathology results are reviewed for surveillance based on pathology results. - Telephone my office for pathology results in 1 week. My findings are described in the full procedure note, which is enclosed. If I can be of further assistance, please feel free to contact me at Doctor phone number(s): , Work: . Sincerely, Abhinav Stubbs MD 06/10/2024 9:03:51 AM This report has been signed electronically.
--- NOTE | 2024-06-10 09:04 | OP.COLON_ITS ---
Patient Name: Christoph Santos Procedure Date: 06/10/2024 8:03 AM Date of : 1955 Age: 68 Procedure: Colonoscopy Indications: Hematochezia, Constipation Providers: Abhinav Stubbs MD Referring MD: Abhinav Stubbs MD Medicines: See the Anesthesia note for documentation of the administered medications Patient Profile: Refer to note in patient chart for documentation of history and physical. Last Colonoscopy: more than 10 years ago. Complications: No immediate complications. Estimated blood loss: Minimal. Procedure: Pre-Anesthesia Assessment: - The heart rate, respiratory rate, oxygen saturations, blood pressure, adequacy of pulmonary ventilation, and response to care were monitored throughout the procedure. - The heart rate, respiratory rate, oxygen saturations, blood pressure, adequacy of pulmonary ventilation, and response to care were monitored throughout the procedure. After I obtained informed consent, the scope was passed under direct vision. Throughout the procedure, the patient's blood pressure, pulse, and oxygen saturations were monitored continuously. The colonoscope was introduced through the anus and advanced to the cecum, identified by the appendiceal orifice, ileocecal valve and palpation. The colonoscopy was technically difficult and complex due to poor bowel prep, significant looping and a tortuous colon. Successful completion of the procedure was aided by changing the patient to a supine position, using manual pressure, withdrawing and reinserting the scope, straightening and shortening the scope to obtain bowel loop reduction, using scope torsion and lavage. The patient tolerated the procedure well. The quality of the bowel preparation was fair. Scope In: 8:05:40 AM Scope Withdrawal Time 0 hours 18 minutes 26 seconds Scope Out: 8:46:57 AM Total Procedure Duration Time 0 hours 41 minutes 17 seconds Findings: Hemorrhoids were found on perianal exam. Two semi-sessile, non-bleeding polyps were found in the sigmoid colon. The polyps were 5 to 10 mm in size. Biopsies were taken with a cold forceps for histology. Estimated blood loss was minimal. Many small and large-mouthed diverticula were found in the sigmoid colon. No biopsies or other specimens were collected for this exam. Internal hemorrhoids were found during retroflexion and during perianal exam. The hemorrhoids were Grade II (internal hemorrhoids that prolapse but reduce spontaneously). No biopsies or other specimens were collected for this exam. Impression: - Preparation of the colon was fair. - Hemorrhoids found on perianal exam. - Two 5 to 10 mm, non-bleeding polyps in the sigmoid colon. Biopsied. - Diverticulosis in the sigmoid colon. No specimens collected. - Internal hemorrhoids. No specimens collected. Recommendation: - Discharge patient to home (via wheelchair). - High fiber diet today. - No aspirin, ibuprofen, naproxen, or other non-steroidal anti-inflammatory drugs for 2 days after biopsy. - Await pathology results. - Repeat colonoscopy date to be determined after pending pathology results are reviewed for surveillance based on pathology results. - Telephone my office for pathology results in 1 week. Procedure Code(s): --- Professional --- 96088, Colonoscopy, flexible; with biopsy, single or multiple Diagnosis Code(s): --- Professional --- K64.1, Second degree hemorrhoids D12.5, Benign neoplasm of sigmoid colon K92.1, Melena (includes Hematochezia) K59.00, Constipation, unspecified K57.30, Diverticulosis of large intestine without perforation or abscess without bleeding CPT copyright 2021 [employer]. All rights reserved. The codes documented in this report are preliminary and upon team psychologist review may be revised to meet current compliance requirements. Abhinav Stubbs MD 06/10/2024 9:03:51 AM This report has been signed electronically. Number of Addenda: 0 Note Initiated On: 06/10/2024 8:03 AM
--- NOTE | 2024-06-10 11:01 | SUR.PHASEII ---
THIS NURSE CALLED TO THE ROOM HE WAS GETTING IN THE WHEELCHAIR. PATIENT GOT A LITTLE DIZZY WHEN WALKING TO WHEELCHAIR AND WANTED TO KNOW IF THAT IS NORMAL. I TOLD THEM THAT CAN HAPPEN AFTER ANESTHESIA IF CHANGING POSITIONS. PATIENT TOLD THIS NURSE THAT HIS SYMPTOMS SUBSIDED ONCE HE WAS IN THE CHAIR. I TOLD HIM TO TAKE IT EASY TODAY, DRINK LOTS OF FLUIDS,AND CHANGE POSITIONS SLOWLY UNTIL ANESTHESIA COMPLETELY WEARS OFF. LAST BP WAS 114/67 IN PACU.
--- NOTE | 2024-06-10 16:13 | PCM.POSTANE2 ---
Anesthesia Postop Eval I Sum Postop Eval Completion status Anesthesia document: Postop Eval 1 completed: Yes Anesthesia Postop Eval I Summary Anesthesia Postop Eval I Summary: Anesthesia Postop Eval I: Assessment Summary Airway patent Yes 06/10/24 09:02 [email or web address] Spontaneous unlabored Yes 06/10/24 09:02 [email or web address] respirations Mental status Asleep 06/10/24 09:02 [email or web address] nausea No 06/10/24 09:02 [email or web address] Vomiting No 06/10/24 09:02 [email or web address] Anesthesia Postop Eval I: Fluid Summary Crystalloid volume administer 90 06/10/24 09:02 [email or web address] (ml) Colloids volume administered ( ml) Blood Product volume administered (ml) Total IV fluid infused 90 06/10/24 09:02 [email or web address] Anesthesia Postop Eval I: Summary Notes Anesthesia Complication No 06/10/24 09:02 [email or web address] Anesthesia Complication Comment: Post-operative progress note Anesthesia: Postop Eval II Evaluation Mental status: Awake and Calm Pain Level: 0 nausea: No Vomiting: No Complications Anesthesia Complication: No
== END 2024-06-10 10:11 | disposition home or self-care (01) ==
LOC: EN 06:15 → AC 06:16
PROVIDERS: PCP Nurse Practitioner Family; Referring Provider Surgery; Visit Provider Surgery
PROC: 0DJD8ZZ Inspection of Lower Intestinal Tract, Via Natural or Artificial Opening Endoscopic (ICD-10-PCS; CPT 45378; principal; 2024-06-10 07:25)
DX: K44.9 Diaphragmatic hernia without obstruction or gangrene (principal); K64.1 Second degree hemorrhoids; K22.89 Other specified disease of esophagus; K57.30 Diverticulosis of large intestine without perforation or abscess without bleeding; Z90.49 Acquired absence of other specified parts of digestive tract; K21.9 Gastro-esophageal reflux disease without esophagitis; K62.5 Hemorrhage of anus and rectum; K59.00 Constipation, unspecified; K31.89 Other diseases of stomach and duodenum; Q39.9 Congenital malformation of esophagus, unspecified; R14.0 Abdominal distension (gaseous); K63.5 Polyp of colon; K64.4 Residual hemorrhoidal skin tags; K29.70 Gastritis, unspecified, without bleeding
CPT/HCPCS: 45380; 43239; 88305; 88312; 88342; J2405

== ENCOUNTER 2024-06-21 05:49 | Day surgery (SDC) | payer MEDICARE, SELFPAY ==
--- NOTE | 2024-06-14 09:09 | EKG12_ITS ---
Test Reason : PREOP Blood Pressure : */* mmHG Vent. Rate : 62 BPM Atrial Rate : 62 BPM P-R Int : 176 ms QRS Dur : 78 ms QT Int : 414 ms P-R-T Axes : 78 -5 12 degrees QTcB Int : 420 ms Normal sinus rhythm with sinus arrhythmia Normal ECG Confirmed by CED ANDRADE, FER ([id number]), editor newspaper RAYNE NICK ([id number]) on 06/15/2024 6:28:20 AM Referred By: Abhinav Stubbs Confirmed By: FER COUGHLIN MD
[2024-06-14 10:50] LABS: Hemoglobin 14.7 g/dL (13.0-16.5); Mean Corpuscular Hgb 32.2 pg (27.0-32.0); Mean Corpuscular Volume 91.9 fL (80-94); Platelet Count 190 K/mm3 (150-450); RBC Distribution Width CV 12.8 % (11.6-14.6); RBC Distribution Width SD 42.9 fl (35.1-43.9); Red Blood Count 4.57 M/mm3 (4.6-6.2); White Blood Count 4.8 K/mm3 (4.4-11.0)
--- NOTE | 2024-06-14 16:38 | PAT.ANESEVAL ---
Pre-Assessment Diagnosis/Proposed Procedure Planned Operative Procedure(s): Lap Robotic Umb/Ventral Hernia w/mesh Anesthesia History Anesthesia History - medical insurance verifier: Anesthesia History - medical insurance verifier Hx Hospitalization No 06/07/24 14:54 Any Problems With Anesthesia No 06/07/24 14:54 Cholinesterase deficiency No 06/07/24 14:54 You/Your Family Experience No 06/07/24 14:54 fever (hyperthermia) with Relationship Recent Exposure to Contagious Disease Does patient have nerve No 06/07/24 14:54 stimulator Patient instructed to have device shut off --Does patient have Pacemaker or ICD? When Was Last Pacemaker Check QUESTION #4 FULL TEXT: You/Your Family Experience fever (hyperthermia) with Anesthesia Last Oral Intake Last Oral intake: Last Oral Intake NPO since Meds taken in AM with sips of water? Meds patient instructed to take am of surgery PONV PONV - medical insurance verifier: PONV - medical insurance verifier Female No 06/07/24 14:54 HX of Motion Sickness No 06/07/24 14:54 HX of N/V After Surgery No 06/07/24 14:54 Non-Smoker Yes 06/07/24 14:54 Duration of Surgery greater Yes 06/07/24 14:54 than 60 minutes Number of Risk Factors 2 06/07/24 14:54 PONV Score Moderate Risk 06/07/24 14:54 Height & Weight Height & Weight: Anesthesia: Height & Weight Height 5 ft 11 in 05/25/24 13:35 Respiratory Assessment Respiratory Assessment - medical insurance verifier: Respiratory Tract Infection Hx - medical insurance verifier Hx Respiratory Tract Infection No 06/07/24 14:54 STOP Sleep Apnea STOP Sleep Apnea - medical insurance verifier: STOP Sleep Apnea - medical insurance verifier Hx Hypertension No 06/07/24 14:54 Hx Sleep Apnea Yes 06/07/24 14:54 CPAP No 06/07/24 14:54 BIPAP Yes 06/07/24 14:54 Do you snore loudly (louder than talking or can be heard Do you often feel tired/ fatigued/ sleepy during daytime? Has anyone observed you stop breathing during sleep? STOP Results Positive 06/07/24 14:54 QUESTION #5 FULL TEXT : Do you snore loudly (louder than talking or can be heard through closed doors)? 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 Specify any problems Hx of Preganancy in last 3 N/A 06/07/24 14:54 Months Nurse Filling Out Transfusion MGRIFFITH 06/07/24 14:54 & Questions: Date: 06/07/24 06/07/24 14:54 Time: 14:56 06/07/24 14:54 Patient unable to answer at this time (ie. confused, unrespo /Reproduction History /Reproductive History - medical insurance verifier: /Reproductive Hx- medical insurance verifier Hx Now Gestational Age (in weeks): EDC: Hx Hx Para Hx Section SAB PFSH Medical History Wears glasses Injury of head and neck BiPAP (biphasic positive airway pressure) dependence Non-smoker Umbilical hernia Sleep apnea Burping Acid reflux Abdominal pain Arthritis Osteoarthritis Hemorrhoid Appendicitis Home Medications ?Medication ?Instructions ?Recorded ?Last Taken ?Type multivitamin 1 tab PO DAILY 09/02/16 06/06/24 History ascorbic acid (vitamin C) 500 mg 500 mg PO DAILY 06/25/19 06/06/24 History capsule niacin 100 mg tablet 100 mg PO DAILY 06/25/19 06/06/24 History cholecalciferol (vitamin D3) 25 25 mcg PO QDAY 05/25/24 06/06/24 History mcg (1,000 unit) capsule magnesium oxide 400 mg PO QDAY 05/25/24 06/06/24 History prosta genix 1,000 mg PO DAILY 05/25/24 06/06/24 History zinc acetate 50 mg (zinc) capsule 50 mg PO QDAY 05/25/24 06/06/24 History chlorhexidine gluconate 4 % 1 applic topical ONCE #473 mL 05/27/24 Unknown Rx topical liquid (Hibiclens) mupirocin 2 % topical ointment 1 applic topical BID #15 grams 05/27/24 Unknown Rx Allergy/AdvReac Type Severity Reaction Status Date / Time peanut Allergy Severe sob, Verified 06/10/24 06:30 rectal bleeding lidocaine (From Xylocaine AdvReac Severe chest pain Verified 06/10/24 06:30 with Epinephrine) Family History Father Diabetes Hypertension Cancer lung Sister Diabetes Mother Heart disease COPD (chronic obstructive pulmonary disease) Surgical History History of appendectomy History of esophagogastroduodenoscopy (EGD) History of colonoscopy (~2014) Social History Smoking Status: Never smoker alcohol intake: current alcohol intake frequency: holidays/special occasions only substance use type: does not use Audit: Pertinent Findings Pertinent Findings EKG Perinent findings: NSR Recommendation Anesthesia Recommendation Anesthesia recommendation: OPTIMIZED for anesthesia
[2024-06-21] VITALS (10 sets, daily range): BP systolic 116–160; BP diastolic 75–88; PULSE 55–68; RESP 12–18; TEMP 36.1–36.9; O2SAT 92–99; BMI 33.0
[2024-06-21] MEDS: 0.9% Normal Saline (1000mL) 1,000 ML 15 ML IV (07:02)
--- NOTE | 2024-06-21 07:14 | PCM.PRE.AN2 ---
ASA Classification* ASA Classification ASA Classification: 2 Assessment & Plan Anesthesia* Anesthesia Assessment Anesthesia Assessment: Discussed sedation and/or anesthesia options, risks, benefits, and alternatives with patient/parents/legal guardian/POA. Questions invited. The patient/parents/legal guardian/POA seems to understand and agrees to proceed with anesthesia plan. Reviewed the physical assessment, medical history, allergy history and patient home medications list prior to surgery/procedure/anesthetic and documented any changes. Performed airway and anesthesia risk assessments. Anesthesia Type Anesthesia Type: General (Avoid lidocaine) Anesthesia Focused Assessment* Temperature: 98.4 F Pulse Rate: 56 Blood Pressure: 138/85 Respiratory Rate: 16 Pulse Ox: 98 Airway Assessment Mouth opens: >3 cm Mallampati Score: II Focused Labs Anesthesia Preop lab: CBC WBC 4.8 K/mm3 (4.4-11.0) 06/14/24 09:06/14/24 RBC 4.57 M/mm3 (4.6-6.2) L 06/14/24 09:06/14/24 Hgb 14.7 g/dL (13.0-16.5) 06/14/24 09:33 06/14/24 Hct 42.0 % (40-54) 06/14/24 09:33 06/14/24 Plt Count 190 K/mm3 (150-450) 06/14/24 09:33 06/14/24 CHEMISTRY Potassium 4.0 mmol/L (3.5-5.1) 09/02/16 20:02 09/02/16 Sodium 138 mmol/L (136-145) 09/02/16 20:02 09/02/16 BUN 13 mg/dL (7-18) 09/02/16 20:02 09/02/16 Creatinine 0.90 mg/dL (0.70-1.30) 09/02/16 20:02 09/02/16 Glucose 95 mg/dL (70-110) 09/02/16 20:02 09/02/16 COAG Pre-Assessment Diagnosis/Proposed Procedure Planned Operative Procedure(s): Lap Robotic Umb/Ventral Hernia w/mesh Anesthesia History Anesthesia History - senior 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 When Was Last Pacemaker Check QUESTION #4 FULL TEXT: You/Your Family Experience fever (hyperthermia) with Anesthesia Last Oral Intake Last Oral intake: Last Oral Intake NPO since 22:00 06/21/24 06:33 Meds taken in AM with sips of No 06/21/24 06:33 water? Meds patient instructed to take am of surgery PONV PONV - senior gamemaster: PONV - senior gamemaster Female No 06/07/24 14:54 HX of Motion Sickness No 06/07/24 14:54 HX of N/V After Surgery No 06/07/24 14:54 Non-Smoker Yes 06/07/24 14:54 Duration of Surgery greater Yes 06/07/24 14:54 than 60 minutes Number of Risk Factors 2 06/07/24 14:54 PONV Score Moderate Risk 06/07/24 14:54 Height & Weight Height & Weight: Anesthesia: Height & Weight Height 5 ft 11 in 06/21/24 06:33 Weight: 107.3 kg 06/21/24 06:33 Body Mass Index (BMI) 33.0 06/21/24 06:33 Respiratory Assessment Respiratory Assessment - senior gamemaster: Respiratory Tract Infection Hx - senior gamemaster Hx Respiratory Tract Infection No 06/07/24 14:54 STOP Sleep Apnea STOP Sleep Apnea - senior gamemaster: STOP Sleep Apnea - senior gamemaster Hx Hypertension No 06/07/24 14:54 Hx Sleep Apnea Yes 06/07/24 14:54 CPAP No 06/07/24 14:54 BIPAP Yes 06/07/24 14:54 Do you snore loudly (louder than talking or can be heard Do you often feel tired/ fatigued/ sleepy during daytime? Has anyone observed you stop breathing during sleep? STOP Results Positive 06/07/24 14:54 QUESTION #5 FULL TEXT : Do you snore loudly (louder than talking or can be heard through closed doors)? 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 Specify any problems Hx of Preganancy in last 3 N/A 06/07/24 14:54 Months Nurse Filling Out Transfusion MGRIFFITH 06/07/24 14:54 & Questions: Date: 06/07/24 06/07/24 14:54 Time: 14:56 06/07/24 14:54 Patient unable to answer at this time (ie. confused, unrespo /Reproduction History /Reproductive History - senior gamemaster: /Reproductive Hx- senior gamemaster Hx Now Gestational Age (in weeks): EDC: Hx Hx Para Hx Section SAB Active Medications Active Medications: Current Medications Generic Name Dose Route Start Last Admin Trade Name Freq PRN Reason Stop Dose Admin Cefazolin Sodium 2 gm/ N/A 20 mls @ 400 mls/hr 06/21/24 07:30 IV 06/21/24 07:32 PREOP ONE Sodium Chloride 1,000 mls @ 15 mls/hr 06/21/24 06:05 06/21/24 07:02 IV 06/26/24 19:24 15 mls/hr .Q48H CAMPBELL Administration Protocol PFSH Medical History Wears glasses Injury of head and neck BiPAP (biphasic positive airway pressure) dependence Non-smoker Umbilical hernia Sleep apnea Burping Acid reflux Abdominal pain Arthritis Osteoarthritis Hemorrhoid Appendicitis Home Medications ?Medication ?Instructions ?Recorded ?Last Taken ?Type multivitamin 1 tab PO DAILY 09/02/16 06/06/24 History ascorbic acid (vitamin C) 500 mg 500 mg PO DAILY 06/25/19 06/06/24 History capsule niacin 100 mg tablet 100 mg PO DAILY 06/25/19 06/06/24 History cholecalciferol (vitamin D3) 25 25 mcg PO QDAY 05/25/24 06/06/24 History mcg (1,000 unit) capsule magnesium oxide 400 mg PO QDAY 05/25/24 06/06/24 History prosta genix 1,000 mg PO DAILY 05/25/24 06/06/24 History zinc acetate 50 mg (zinc) capsule 50 mg PO QDAY 05/25/24 06/06/24 History chlorhexidine gluconate 4 % 1 applic topical ONCE #473 mL 05/27/24 Unknown Rx topical liquid (Hibiclens) mupirocin 2 % topical ointment 1 applic topical BID #15 grams 05/27/24 Unknown Rx pantoprazole 20 mg tablet,delayed 20 mg PO QDAY 30 days #30 tabs 06/16/24 Unknown Rx release (Protonix) Allergy/AdvReac Type Severity Reaction Status Date / Time peanut Allergy Severe sob, Verified 06/21/24 06:28 rectal bleeding lidocaine (From Xylocaine AdvReac Severe chest pain Verified 06/21/24 06:28 with Epinephrine) Family History Father Diabetes Hypertension Cancer lung Sister Diabetes Mother Heart disease COPD (chronic obstructive pulmonary disease) Surgical History History of appendectomy History of esophagogastroduodenoscopy (EGD) History of colonoscopy (~2014) Social History Smoking Status: Never smoker alcohol intake: current alcohol intake frequency: holidays/special occasions only substance use type: does not use Review of Systems (Anesthesia) ROS Narrative System reviewed and no additional complaints, except as documented.
--- NOTE | 2024-06-21 07:22 | PCM.HP.BLA ---
History and Physical Date of Admission: 06/21/24 Date of Service: 05/25/24 MR#: [id number] Acct: [id number] Name: CLARIBEL SANTOS Rep #: [id number] : 1955 Provider: Dr. Abhinav Stubbs MD Age/Sex: 68/M Location: [facility] Status: Signed Intake Vital Signs 06/30/2308:17 05/06/2415:20 05/25/2512:35 Height 5 ft 11 in 5 ft 11 in 5 ft 11 in Weight: 237 lb BMI 33.0 BP 148/82 H Blood Pressure Location Rt brachial Position Sitting Respiration 18 Pulse 63 Pulse Source Monitor Temp 97.5 F L Temp Source Temporal Pulse Oximetry (%) 96 Oxygen Delivery Method room air Intake Visit Reasons: UMBILICAL HERNIA Chief Complaint: umbilical hernia/ LLQ pain Accompanied by: Is patient in pain?: No Allergies peanut Allergy (Severe, Verified 05/25/24 13:17) sob, rectal bleedingepinephrine (From Xylocaine with Epinephrine) Adverse Reaction (Severe, Verified 05/25/24 13:17) chest pain lidocaine (From Xylocaine with Epinephrine) Adverse Reaction (Severe, Verified 05/25/24 13:17) chest pain Medications ?Medication ?Instructions ?Recorded ?Confirmed ?Type multivitamin 1 tab PO DAILY 09/02/16 06/25/19 History ascorbic acid (vitamin C) 500 mg mg PO 06/25/19 05/25/24 History capsule niacin 100 mg tablet 100 mg PO DAILY 06/25/19 06/25/19 History cholecalciferol (vitamin D3) 25 25 mcg PO QDAY 05/25/24 05/25/24 History mcg (1,000 unit) capsule magnesium oxide 400 mg PO QDAY 05/25/24 05/25/24 History prosta genix 1,000 mg PO DAILY 05/25/24 History zinc acetate 50 mg (zinc) capsule 50 mg PO QDAY 05/25/24 05/25/24 History Have you fallen in the past year?: No [facility] Medical History (Updated 05/25/24 @ 17:[address] Abhinav Stubbs MD) Umbilical hernia Sleep apnea Burping Acid reflux Abdominal pain Arthritis Appendicitis Osteoarthritis Hemorrhoid Surgical History History of colonoscopy (~2014) Family History Father Diabetes Hypertension Cancer lungSister DiabetesMother Heart disease COPD (chronic obstructive pulmonary disease) Social History (Updated 05/25/24 @ 13:17 by Gretel Mcgee LPN) Smoking Status: Never smoker alcohol intake: current alcohol intake frequency: holidays/special occasions only substance use type: does not use HPI HPI HPI: Patient is a 68-year-old male who presents for surgical consultation related to a growing umbilical hernia. This finding was first noticed by over 8 years ago and he met twice with Dr. Pruett regarding a possible repair but opted to not go all the way to [place] for the repair. He presents today's visit with his who assists with the history. Patient is able to recall how this occurred and shares that it began when lifting a heavy pallet at work. He states that he then underwent an appendectomy with Dr. Kruse in [address] Kruse performed a primary repair at the time of the appendectomy. 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 He shares that he had considered trying to go to the [facility] in [place] for a mesh free repair because he had always heard mesh was a problem but when they heard that had previously been repaired by Dr. Kruse he was no longer considered a candidate. Mr. Santos shares that in addition to growth he experiences a strain of the tissue but denies jason pain. He denies any associated skin changes. When asked about any changes to his bowel movements he generally says no but does share that he finds he regularly experiences constipation on the weekends where he simply fails to have a bowel movement. He reports his last bowel movement was at least [address] Vale. He recalls the findings were unremarkable. Mr. Santos adds that he has been trying to lose weight in anticipation of the surgery and estimates that he is down about 10 pounds from his prior weight. Mr. Santos elaborates that one of the reasons he did not proceed with surgery in 2020 is because he had a workplace accident where he fell from scaffolding resulting in rib fractures, a intracranial bleed, and a number of orthopedic injuries. He states that since that accident he experiences some right shoulder droop and hip pain but no lasting neurologic deficits. He does add that since the accident he seems to have terrible gas of his stomach and reports belching frequently but trying to stifle this belching. Patient has no personal history of smoking. Has now personal history of recurrent cutaneous infections including staph. Pertinent surgical history includes: Laparoscopic appendectomy Given Mr. Santos's complaints of new constipation and duration since his last screening colonoscopy we discussed renewing this exam. They describe their bowel habits as generally occurring 1 time per day and normal in consistency. They generally spend roughly just minutes on the toilet but sometimes bowel movements do require significant straining. They also report that they noticed bleeding every once in a while (this is detailed as a frequency of less than 1 time per month). Patient has no family history of colon cancer, inflammatory bowel disease, or diverticulitis. The patient is not prescribed anticoagulants/blood thinners. Patient does have a significant history of GERD and heartburn. He shares that is primarily heartburn rather than reflux and suggest that his heartburn occurs mostly in the evenings. His reflux occurs almost exclusively in response to foods he eats and gives example of sweet red constantin triggering heartburn. He denies any personal history of ulcers but shares that his father did suffer from significant ulcers. ROS General General: No weight change, appetite, fatigue, colon cancer, breast cancer or weakness HEENT HEENT: No difficulty swallowing, eye injury, eye surgery, swollen glands or hoarseness Endo Endocrine: No thyroid disease, diabetes mellitus, thyroid cancer, Hair loss, heat intolerance or cold intolerance Skin Skin: No rash or changing moles Musc Musculoskeletal: Yes back problems, arthritis and rheumatoid arthritis; No gout or joint pain Cardio Cardiovascular: No murmur, pacemaker, heart disease, atrial fibrillation, high blood pressure, heart attack, heart stent, palpitations, shortness of breat with exertion or chest pain Psych Psychiatric: No depression, anxiety or hearing voices Resp Respiratory: No shortness of breath, Yes sleep apnea, No cough, No COPD, No asthma, No emphysema and No wheezing Gastro Gastrointestinal: Yes abdominal pain, No nausea or vomiting, No diarrhea, No constipation, No blood in stool, Yes acid reflux, Yes hemorrhoids, No ulcers, No gallbladder problem and No black,tarry stools Francis Hematologic: No blood thinners, No blood disorders, No bleeding, No anemia and No blood clots Neuro Neurologic: No numbness, No tingling and No weakness Exam Const General: cooperative Orientation: alert, awake and oriented x3 Resp Effort & Inspection: normal respiratory effort GI Other: Hirsute, obvious hernia of the umbilicus which is not easily reduced and appears to be at least partially chronically incarcerated with fat. There is tenderness to palpation. Hernia defect is estimated approximately 3 to 4 cm. Otherwise abdomen is nondistended, soft, nontender to palpation. Assessment and Plan Assessment and Plan (1) Umbilical hernia: Status: Chronic Comment: Patient with chronic umbilical hernia that was previously repaired primarily in 2017 as part of an appendectomy procedure but recurred shortly thereafter during exertional activity. Hernia is minimally symptomatic but has demonstrated growth. Patient was previously evaluated for repair but initially had a workplace accident that precluded him from going through with the repair and then opted to not travel to the outside hospital. Hernia appears largely stable in size from CT imaging obtained March 2023, but admittedly the hernia is at least partially chronically incarcerated and I was not able to clearly find the fascial edges on exam. Given patient's growth and strong interest in having this repaired I find it reasonable request to proceed?especially as he reports that he has been trying to make healthier lifestyle changes to the name of minimizing his risk for recurrence. After describing the procedure in detail I discussed with him and his potentially proceeding for colonoscopy and EGD prior to proceeding to the OR for this repair given his reports of new constipation and unsettling belching. Ultimately they would like to proceed with this sequence rather than with an operation first. Plan: ? Screening for MRSA via nares swab ? Plan for robot-assisted laparoscopic umbilical hernia repair with mesh. Discussed transabdominal preperitoneal and IPOM approaches but caution that IPOM may be the only method possible given patient's history of previous primary repair. (2) Burping: Status: Acute Plan: Plan for EGD with biopsy and rule out H. pylori (3) Acid reflux: Status: Acute Comment: Patient describes both acid reflux and heartburn but heartburn as primary complaint. Plan: EGD (4) Heartburn symptom: Status: Acute Comment: Patient describes both heartburn and reflux but primary complaint is heartburn. No history of prior EGD evaluation but father did have history of significant ulcers. Plan: EGD (5) Bright red blood per rectum: Status: Acute Comment: Patient describes new constipation with straining and hematochezia. He has out of date on his screening colonoscopies. There does appear to be new diverticulosis on patient's CT imaging from March 2023. Given the symptoms and their potential impact on his recovery through a umbilical hernia repair I offered that we could proceed with updating his colonoscopy prior to proceeding to the OR on his hernia repair and patient and his were receptive. Plan: Diagnostic colonoscopy for new constipation and hematochezia on first mutually agreeable date under local MAC. Pre-procedure prep discussed and paper instructions provided. Patient is also made aware that he will need to have a guard driver with him the day of the procedure. (6) Constipation: Status: Acute Comment: Describes constipation on a weekly basis with associated hematochezia. Plan: Update colonoscopy with diagnostic exam Orders: Orders MRSA/SAID SCREEN (PRE SURG) Today K42.9 - Umbilical hernia without obstruction or gangrene, Z01.818 - Encounter for other preprocedural examination I have examined the patient and the H&P has been reviewed. There are no clinical changes since date of exam. Procedure overview and postprocedure restrictions given. All questions answered from patient and his spouse. Proceed to the operating room for planned robot-assisted umbilical hernia repair with mesh.
[2024-06-21] MEDS: Cefazolin 2 GM in Syringe IV (07:50)
[2024-06-21] MEDS: 0.9% Normal Saline (Pres. free 10 ML Vial (11:30)
--- NOTE | 2024-06-21 11:38 | OP.PCM_ITS ---
Operative Report (Standard) Operative Information Date of Procedure: 06/21/24 Pre-Operative Diagnosis: Recurrent umbilical hernia Post-Operative Diagnosis: Same Surgery/Procedure Performed: Robot-assisted transabdominal preperitoneal repair of recurrent umbilical hernia with mesh developer programmer analyst: Yes Leave Specialist: Juan Luis Mejia Tasks completed by election assistant: Opening & closing Type of Anesthesia: General/Supplemental RN Documented Start/Stop Times: Operation Date: 06/21/24 07:30 Case Time Into Pre-Op 06/21/24 06:04 Out of Pre-Op 06/21/24 07:28 Anesthesia Start 06/21/24 07:38 Into Room 06/21/24 07:38 Procedure Start 06/21/24 08:09 Procedure End 06/21/24 11:47 Anesthesia End 06/21/24 11:57 Out of Room 06/21/24 11:57 Into Recovery 06/21/24 12:02 Out of Recovery 06/21/24 12:52 Into Phase II Recovery 06/21/24 12:53 Out of Phase II 06/21/24 14:55 Procedure Start Time: 08:09 Procedure Stop Time: 11:40 Select all DRAINS/GRAFTS/IMPLANTS that apply: Implanted device (Ventralight ST mesh cut 12 cm x 15 cm) Implanted device details: Reference [id number], lot [id number] Estimated Blood Loss: 10 Specimen collected: No Description of surgery: After appropriate identification in the preoperative holding area, the patient was brought to the operating room suite where he was positioned supine the operating table. Preoperative antibiotics were administered. Patient was then induced with a general anesthetic. Patient's abdomen was prepped and draped in the usual sterile fashion. A formal timeout followed to confirm patient and procedure. Procedure was begun with a Veress entry at Roger's point. Once the set point pressure was reached, this Veress needle was exchanged for an optical trocar and an optical entry was made in this location. Laparoscopic investigation revealed no inadvertent injury to the viscera below. 2 additional 8 mm robotic trochars were placed along the abdominal wall laterally taking care to avoid the bony prominences of the costal margin and the ASIS. A transversus abdominis plane block was created with 70 mL of a cocktail of Exparel, Marcaine, and injectable saline under laparoscopic vision as these ports were placed. The robot was then brought in and docked in standard fashion. Robotically a peritoneal flap was raised approximately 3 cm medial from my trocars and carried this away towards the contralateral abdominal wall. Great care was taken to lower the peritoneum off of the posterior rectus sheath and avoid any rents in the peritoneal flap. Perforating vessels were sealed with monopolar for bipolar energy to maintain hemostasis as this flap dissection proceeded. I then addressed the hernia directly by opening the scar tissue about the hernia sac and carefully applying manual traction downward until the hernia was fully reduced. This proved challenging as a significant portion of the patient's omentum was scarred into the hernia sac and had herniated through the peritoneum creating a large central defect. Gradually this reduction was successful and the flap was then further dissected laterally until it appeared we had adequate width. The hernia defect was measured at 4 x 3.5 cm so I requested a 12 x 15 cm piece of mesh to serve as an underlay. As it was being prepared I closed the fascial defect with a #1 stratafix suture by running the fascial defect closed and then running the suture back upon itself. Then the prepared mesh was introduced into the peritoneum and a 3-0 V-Loc suture was used to chandelier the mesh. This V-Loc suture was run towards the operating side of the opening and then circumferentially about the periphery of the mesh. A 3-0 Vicryl suture was then used to loosely tacked the mesh in the cephalad and caudad direction as well as reinforce the proximal side of the mesh against the abdominal wall. Distally against the right abdominal sidewall the mesh was tucked nicely into the preperitoneal pocket and did not appear to be mobile. I continued to run the periphery of the mesh with additional 3 OV lock sutures. Lastly the peritoneum was closed with 3-0V-Loc suture?both at the periphery as well as a separate 3-0 V-Loc suture was required to close the large fascial defect from the omentum. The robot was then undocked and the trocars were removed. Additional local anesthetic was instilled and the port sites were closed with interrupted 4-0 Monocryl in subcuticular fashion. Steri-Strips and OpSite dressings were applied. Patient was transferred to PACU for ongoing care. Surgical Findings: ? 4 x 3.5 cm fascial defect with dense scarring of fat incarcerated hernia Complications Complications: No Admit VTE Documentation VTE Mechan Device Prophylaxis: SCD's
--- NOTE | 2024-06-21 11:42 | DCINST_ITS ---
Discharge Instructions Diet Discharge Diet: No restrictions Activity Discharge Activity: May Not Drive (While taking narcotic pain medication) and May Shower May shower in (days): 2 Ice area for (Minutes): 20 Lifting Restrictions: No lifting greater than 10 pounds for the next 5 weeks Dressing / Incision Call your doctor if your incision/area has: Continuous Slow Oozing, Increased Pain/ Swelling, Increased Redness, Foul Smelling Discharge and Swelling at the incision site Call your doctor if you observe: Fever of 101 or Higher, Inability to urinate and Inability to have a bowel movement Change Dressing in: 2 days (Please leave Steri-Strips intact until they fall off spontaneously or are taken off at your follow-up visit) Remove Dressing in: 2 days Cleanse incision/area with: Soap & Water and Keep Dressing Clean & Dry Follow Up Care Please Follow Up With: Abhinav Stubbs MD When: 1-2 week postop Test Results: Test results from this visit will be discussed in further detail at your follow- up appointment, if applicable. Discharge Plan Admission Primary Reason for Your Visit: Repair of recurrent umbilical hernia Attending Provider: Abhinav Stubbs Primary Care Provider: [place] [employer] Instructions Print Language: Citizen Of [place] Discharge Orders/Prescriptions Prescriptions: New oxycodone 5 mg tablet 5 mg PO Q6H PRN (Reason: pain) 3 Days Qty: 14 0RF Continued niacin 100 mg tablet 100 mg PO DAILY ascorbic acid (vitamin C) 500 mg capsule 500 mg PO DAILY prosta genix 1,000 mg PO DAILY magnesium oxide 400 mg magnesium capsule 400 mg PO QDAY cholecalciferol (vitamin D3) 25 mcg (1,000 unit) capsule 25 mcg PO QDAY zinc acetate 50 mg (zinc) capsule 50 mg PO QDAY multivitamin 1 EACH tablet 1 tab PO DAILY mupirocin 2 % ointment 1 applic topical BID Qty: 15 0RF Rx Instructions: Apply to a qtip into bilateral nares BID for 1week chlorhexidine gluconate [Hibiclens] 4 % liquid 1 applic topical ONCE Qty: 473 0RF Rx Instructions: shower with once daily for one week pantoprazole [Protonix] 20 mg tablet,delayed release (DR/EC) 20 mg PO QDAY 30 Days Qty: 30 0RF Other Ambulatory Orders: 12 Lead EKG (Routine) Timeframe: [id number] Location: None Selected Ordered By: Dr. Carl Serna Referrals / Follow Up: [place] [employer], [employer] [Primary Care Provider] - Disposition Disposition (needs filled in before D/C Order can be placed): Home, Self Care
[2024-06-21] MEDS: Bupivacaine 0.25% 30 ML Vial (11:49)
[2024-06-21] MEDS: BUPIVACAINE LIPOSOME/PF 20 ML VIAL OPERA.SITE (11:50)
--- NOTE | 2024-06-21 12:10 | PCM.POST.ANE ---
Anesthesia: Postop Eval I Current Vital Signs Temperature: 97.7 F Pulse Rate: 55 Blood Pressure: 120/75 Respiratory Rate: 18 Pulse Ox: 95 Oxygen Delivery Method: Nasal Cannula Oxygen Flow Rate (L/min): 2 Assessment Airway patent: Yes Spontaneous unlabored respirations: Yes Mental status: Calm and Asleep nausea: No Vomiting: No Anesthesia Complication: No Fluid Hydration Crystalloid volume administer (ml): 1,800 Total IV fluid infused: 1,800 Progress Note Anesthesia document: Postop Eval 1 completed: Yes
--- NOTE | 2024-06-21 12:53 | POSTOPAN2_ITS ---
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
--- NOTE | 2024-06-21 12:53 | PCM.POSTANE2 ---
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
== END 2024-06-21 14:55 | disposition home or self-care (01) ==
LOC: SDC 05:50 → AC 05:50
PROVIDERS: Anesthesiology; PCP Nurse Practitioner Family; Referring Provider Surgery; Visit Provider Surgery
PROC: (CPT 49616; principal; 2024-06-21 07:10)
DX: K42.0 Umbilical hernia with obstruction, without gangrene (principal); K21.9 Gastro-esophageal reflux disease without esophagitis; Z79.899 Other long term (current) drug therapy
CPT/HCPCS: 49616; S2900; 00830; 36415; 85027; 93005; C1781; J0666; J2405